=== PATIENT | female | born 1940 | race Caucasian/White ===

== ENCOUNTER 2020-07-03 09:39 | Emergency (ER) | payer MEDICARE, SELFPAY ==
--- NOTE | ~2020-07-03 | XR_ITS ---
EXAMINATION: [id number] DATE: 07/03/2020 10:17 INDICATION: Lateral right chest pain after bending over. TECHNIQUE: A frontal inspiratory view of the chest and 3 views of the right ribs were obtained. COMPARISON: Chest radiograph dated FINDINGS: No rib fractures identified. No pneumothorax. No focal infiltrates, pleural effusion or pulmonary joselito ma. Cardiomediastinal silhouette is normal. Mild thoracic and moderate lumbar spondylosis with bridg ing osteophytes at multiple levels consistent with diffuse idiopathic skeletal hyperostosis (DISH). IMPRESSION: 1. No rib fracture or acute cardiopulmonary disease. Reviewed, dictated and finalized at location A.
[2020-07-03 09:55] VITALS: BP 165/50; PULSE 97; RESP 18; TEMP 36.8; O2SAT 98
[2020-07-03 10:12] VITALS: BP 165/50; PULSE 97; RESP 18; TEMP 36.8; O2SAT 98
--- NOTE | 2020-07-03 10:31 | ED.GENADULT ---
HPI - General Adult General Chief complaint: Wound/Laceration Stated complaint: intense pain on right side Time Seen by Provider: 07/03/20 10:14 Source: patient and RN notes reviewed Mode of arrival: ambulatory Limitations: no limitations History of Present Illness HPI narrative: Patient presents today complaining of a 1 week history of of right lateral rib pain. 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 Dog is approximately 10 pounds. Pain increases with movement, coughing, sneezing. Denies pain at rest. She has been taking Tylenol as needed for pain, which does provide some relief. MD complaint: Right rib pain Related Data Home Medications Medication Instructions Recorded Confirmed atorvastatin 40 mg PO DAILY 07/03/20 07/03/20 lisinopril-hydrochlorothiazide 2 tablet PO DAILY 07/03/20 07/03/20 meloxicam 7.5 mg PO DAILY PRN 07/03/20 07/03/20 prednisone See Rx Instructions .ROUTE .COMPLEX 07/03/20 07/03/20 Allergies Allergy/AdvReac Type Severity Reaction Status Date / Time No Known Allergies Allergy Verified 07/03/20 09:53 Review of Systems Review of Systems: Narrative: CONSTITUTIONAL: Denies body aches, fever, chills, or sweats. EYES: Denies visual changes, redness, or discharge. ENT: Denies rhinorrhea, congestion, sore throat, or otalgia. CARDIOVASCULAR: Denies chest pain, palpitations, or edema. RESPIRATORY: Denies cough or dyspnea. GASTROINTESTINAL: Denies abdominal pain, nausea, vomiting, or diarrhea. GENITOURINARY: Denies dysuria or hematuria. SKIN: Denies rash, itching, or wounds. MUSCULOSKELETAL: Denies back pain, joint pain, or myalgia.+ Right rib pain NEUROLOGIC: Denies headache, numbness, tingling, or weakness. PSYCH: Denies depression or anxiety. [facility] Past Medical History Medical History (Updated 07/03/20 @ 10:35 by Yissel Patiño, PICKER MACHINE OPERATOR, ) Hypercholesterolemia Hypertension Social History Social History Smoking status: Never smoker Comments At time of signature, I have reviewed and agree with nursing past medical, surgical, social and family history unless otherwise noted. Please see nursing chart for further information. There is no relevant family history pertinent to the presenting complaint Exam Narrative: Exam Narrative: GENERAL: Well-appearing, well-nourished, and in no acute distress. HEAD: Normocephalic, atraumatic. EYES: EOMI. No redness or drainage. Conjunctivae normal. ENT: Mucous membranes pink and moist. NECK: Normal AROM. CHEST: No respiratory distress. Clear to auscultation. Localized point tenderness to the right anterior lateral lower ribs without crepitus, edema, ecchymosis, or deformity. HEART: Regular rate and rhythm. No murmur appreciated. Normal peripheral pulses. ABDOMEN: Soft, nontender, nondistended, normal active bowel sounds. MUSCULOSKELETAL: No bony tenderness. EXTREMITIES: Normal range of motion. No edema. SKIN: Warm, dry, no rash. Capillary refill normal. Normal skin turgor. NEURO: No focal deficits. Alert and oriented x3. Gait steady. PSYCH: Normal affect. No signs of depression or anxiety. Course Vital Signs Vital signs: Vital Signs Temperature 98.2 F 07/03/20 09:55 Pulse Rate 97 07/03/20 09:55 Respiratory Rate 18 07/03/20 09:55 Blood Pressure 165/50 H 07/03/20 09:55 Pulse Oximetry 98 07/03/20 09:55 Temperature 98.2 F 07/03/20 10:12 Pulse Rate 97 07/03/20 10:12 Respiratory Rate 18 07/03/20 10:12 Blood Pressure 165/50 H 07/03/20 10:12 Pulse Oximetry 98 07/03/20 10:12 Reviewed. Pt has been instructed to follow up with her PCP regarding her elevated blood pressure today. Medical Decision Making Differential Diagnosis Differential Diagnosis: Rib fracture, rib contusion, chest wall strain Vital Signs Vital Signs: Vital Signs Temperature 98.2 F 07/03/20 09:55 Pulse Rate 97 07/03/20 09:55 Respiratory Rate 18 07/03/20 09:55 Bloo
== END 2020-07-03 10:35 | disposition home or self-care (01) ==
PROVIDERS: Emergency Provider Nurse Practitioner; PCP Internal Medicine
DX: S29.011A Strain of muscle and tendon of front wall of thorax, initial encounter (principal); X50.9XXA Other and unspecified overexertion or strenuous movements or postures, initial encounter; E78.00 Pure hypercholesterolemia, unspecified; I10 Essential (primary) hypertension
CPT/HCPCS: 71101; 99213; G0463

== ENCOUNTER 2024-07-17 11:27 | Emergency (ER) | payer MEDICARE, OTHER, SELFPAY ==
--- NOTE | ~2024-07-17 | XR_ITS ---
XR elbow LT min 3V Ordering provider: Zeferino Olguin APRN History: . pain x1 week no injury . Comparison: None. FINDINGS: BONES: No acute fracture or dislocation. JOINT SPACES: Osteoarthritic changes. SOFT TISSUES: Normal. No definite joint effusion. IMPRESSION: No acute osseous abnormality left elbow. Reviewed, dictated and finalized at location A.
[2024-07-17 11:36] VITALS: BP 113/54; PULSE 83; RESP 20; TEMP 36.7; O2SAT 100
--- NOTE | 2024-07-17 13:15 | ED_ITS ---
HPI - Extremity Injury (Upper) General Chief Complaint: Extremity Injury, Upper Stated Complaint: Left Elbow Pain Source: patient and RN notes reviewed Mode of arrival: ambulatory Limitations: no limitations History of Present Illness HPI narrative: 84-year-old female presents express care with her spouse complaining of left elbow pain. Patient denies any injury to her left elbow or any repetitive movements. She said she noticed the pain about 1 week ago. Patient reports the pain is on the medial side of her left elbow. She denies any obvious swelling, injury, deformity, numbness or tingling. She has a history of arthritis. Patient is able to move her left elbow and denies any pain while resting. She says her pain is worse when she hyperextends her left elbow. Related Data Home Medications ?Medication ?Instructions ?Recorded ?Confirmed ?Last Taken ?Type atorvastatin 40 mg tablet 40 mg PO DAILY 07/03/20 07/03/20 Unknown History lisinopril 20 2 tablet PO DAILY 07/03/20 07/03/20 Unknown History mg-hydrochlorothiazide 12.5 mg tablet meloxicam 7.5 mg tablet 7.5 mg PO DAILY PRN Pain 07/03/20 07/03/20 Unknown Histo ry prednisone 10 mg tablet See Rx Instructions .Route .COMPLEX 07/03/20 07/03/20 Unknown History Allergies Allergy/AdvReac Type Severity Reaction Status Date / Time No Known Allergies Allergy Verified 07/17/24 12:04 Review of Systems Review of Systems: CONSTITUTIONAL: Denies fever, chills, or sweats. EYES: Denies visual changes, redness, or discharge. ENT: Denies rhinorrhea, congestion, sore throat, or otalgia. CARDIOVASCULAR: Denies chest pain, palpitations, or edema. RESPIRATORY: Denies cough or dyspnea. GASTROINTESTINAL: Denies abdominal pain, nausea, vomiting, or diarrhea. GENITOURINARY: Denies dysuria or hematuria. SKIN: Denies rash or itching. MUSCULOSKELETAL: Denies back pain, or myalgia. Positive for left elbow pain. NEUROLOGIC: Denies headache, numbness, tingling, or weakness. PSYCHIATRIC: Denies anxiety or depression. All other systems reviewed are negative, except as documented in HPI. [facility] Past Medical History Medical History (Updated 07/17/24 @ 12:27 by Zeferino Olguin APRN) Hypertension Hypercholesterolemia Social History Social History Smoking status: Never smoker Comments At the time of my signature, I reviewed and agree with the nursing past medical, surgical, social, and family history. There is no relevant family history pertinent to the patient complaint. Exam Narrative: GENERAL: This is a well-nourished, well-developed adult, in no apparent distress. They are non ill-appearing, nontoxic appearing. HEAD: normocephalic, atraumatic. EYES: Sclera clear/white. Vision is grossly intact. EARS: External ears normal, Hearing grossly intact. NOSE: External nose normal THROAT: Mucous membranes moist, NECK: Neck supple, CARDIOVASCULAR: Regular rate and rhythm RESPIRATORY: Normal respiratory rate depth. Respiratory distress SKIN: warm, Dry, intact with no suspicious lesions or rash, good texture and turgor. NEURO: awake, alert, and oriented to person, place and time. There were no obvious focal neurologic abnormalities. EXTREMITIES: Left elbow: There is bony tenderness to palpation to the medial side of the left elbow. There is no obvious swelling, deformity, injury, bruising. Neurovascular status is intact, capillary refill less than 2 seconds, a radial pulse is 2 +and palpable. There is no pain with pronation or supination. Her pain is elicited through hyper extension of her left elbow. Course Course Level of Care: Express Care Visit Vital Signs Vital signs: Vital Signs Temperature 98.0 F 07/17/24 11:36 Pulse Rate 83 07/17/24 11:36 Respiratory Rate 20 07/17/24 11:36 Blood Pressure 113/54 L 07/17/24 11:36 Pulse Oximetry 100 07/17/24 11:36 Oxygen Delivery Room Air 07/17/24 11:36 Temperature 98.0 F 07/17/24 11:36 Pulse Rate 83 07/17/24 11:36 Respiratory Rate 20 07/17/24 11:36 Blood Pressure 113/54 L 07/17/24 11:36 Pulse Oximetry 100 07/17/24 11:36 Oxygen Delivery Room Air 07/17/24 11:36 Reviewed MDM - Extremity Injury (Upper) MDM Narrative Medical decision making narrative: Patient has prominent pain to palpation to the medial side of her left elbow which could be consistent with a tendinitis. X-ray was negative for any acute fracture, did show some arthritis in that joint space. MON therapy discussed. Discussed physical exam findings. Advised supportive measures and signs/symptoms to go to the ER. Pt is appropriate for outpt treatment and f/u. Differential Diagnosis Differential diagnosis: Likely other (Tendinitis, elbow fracture, elbow dislocation) Imaging Data Attestation: I personally reviewed and interpreted this imaging study as follows: Radiologist's impression: History: . pain x1 week no injury . Comparison: None. FINDINGS: BONES: No acute fracture or dislocation. JOINT SPACES: Osteoarthritic changes. SOFT TISSUES: Normal. No definite joint effusion. IMPRESSION: No acute osseous abnormality left elbow. Critical Care Time Critical Care Time Critical Care Time: No Discharge Plan Discharge Clinical Impression: Elbow pain, left Patient Disposition: Home Condition: Stable Instructions: Tennis Elbow (ED) Additional Instructions: Rest and elevate the elbow; Apply ice 15-20 minute intervals several times a day Keep it wrapped with KISHORE wrap for compression sleeve Tylenol 1000mg every 8 hours as needed Follow up with your primary care provider or orthopedist in 1-2 weeks Patient Language: Sri Lankan Prescriptions: No Action atorvastatin 40 mg tablet 40 mg PO DAILY lisinopril-hydrochlorothiazide 20-12.5 mg tablet 2 tablet PO DAILY meloxicam 7.5 mg tablet 7.5 mg PO DAILY PRN (Reason: Pain) prednisone 10 mg tablet See Rx Instructions .ROUTE .COMPLEX Rx Instructions: 10 mg orally, tapering dose Follow-up/Referrals: Griffin Brush MD [Physician] - [facility],Yrn Vences MD [Primary Care Provider] - Time of Disposition: 12:27
--- OUTSIDE RECORDS SUMMARY | 2024-07-17 13:23 | XMS_ITS | Referral Summary ---
Author Organization [facility] Address [address] [place] [address] Care Team Providers Care Surg Tech Name Role Phone Yrn Tuttle MD Primary Care Provider [phone] Jo Harmon PT Unavailable Unavailable Allergies Active Allergy Reactions Criticality Noted Date Comments Sulfa (Sulfonamide Antibiotics) Sulfanilamide Hives Reaction: Hives, Medications atorvastatin (LIPITOR) 40 mg tablet 05/17/2017 Active lisinopril-hydr oCHLOROthiazide (PRINZIDE,ZESTO RETIC) 20-12.5 mg per tabletIndicatio ns:hypertension Take 1 tablet by mouth 2 (two) times a day 04/06/2017 Active aspirin 81 mg tablet Take 1 tablet (81 mg total) by mouth daily Active metoprolol tartrate (LOPRESSOR) 50 mg immediate release tablet Take 1 tablet (50 mg total) by mouth 2 (two) times a day 09/17/2020 Active diphenhydrAMINE -acetaminophen (TYLENOL PM) 25-500 mg tablet Take 1 tablet by mouth nightly as needed for sleep Active polyethylene glycol (MIRALAX) 17 gram/dose powder Take 17 g by mouth 2 (two) times a day as needed 09/17/2020 Active senna (SENOKOT) 8.6 mg tablet Take 8.6 mg by mouth daily 09/17/2020 Active furosemide (LASIX) 20 mg tablet Take 20 mg by mouth daily as needed 03/11/2021 Active traMADoL (ULTRAM) 50 mg tablet 03/11/2021 Active potassium chloride ER 10 mEq CR tablet Take 1 tablet/capsu le (10 mEq total) by mouth daily 03/30/2022 Active Active Problems Problem Noted Date Diagnosed Date Chronic anemia 09/11/2021 Bilateral lower extremity edema 03/11/2021 S/P total knee arthroplasty, left 08/12/2020 Primary osteoarthritis of both knees 07/22/2020 Primary osteoarthritis of left knee 06/07/2020 Generalized osteoarthritis 12/12/2019 Moderate aortic stenosis 12/12/2019 Lipoma of skin and subcutaneous tissue 0 Benign skin lesion of neck 10/31/2019 Memory loss 11/17/2017 Other hyperlipidemia 08/26/2013 Overview (07/22/2020): HYPERLIPIDEMIA NEC/NOS GERD without esophagitis 08/26/2013 Overview (07/22/2020): ESOPHAGEAL REFLUX Benign hypertension 08/26/2013 Overview (07/16/2016): BENIGN HYPERTENSION Essential hypertension, benign 08/26/2013 Overview (07/22/2020): HYPERTENSION NOS Immunizations Immunization Administration Dates Next Due Pneumococcal Polysaccharide PPV23 01/21/2009 Td, adsorbed 01/21/2009 Social History Tobacco Use Types Packs/Day Years Used Date Smoking Tobacco: Never Smokeless Tobacco: Never Alcohol Use Standard Drinks/Week Comments No 0 (1 standard drink = 0.6 oz pur e alcohol) Comments Unknown Sex and Gender Information Value Date Recorded Sex Assigned at Not on file Legal Sex Female 11:49 PM PAPER STRIPPER Gender Identity Not on file Sexual Orientation Not on file Last Filed Vital Signs Vital Sign Reading Time Taken Comments Blood Pressure 109/68 05/14/2023 10:43 AM PAPER STRIPPER Pulse 83 05/14/2023 10:43 AM PAPER STRIPPER Temperature 36.6 C (97.8 F) 07/22/2020 9:14 AM CDT Respiratory Rate 16 10/04/2020 9:04 AM CDT Oxygen Saturation - - Inhaled Oxygen Concentration - - Weight 61.3 kg (135 lb 3.2 oz) 05/14/2023 10:43 AM PAPER STRIPPER Height 149.9 cm (4' 11 ) 05/14/2023 10:43 AM PAPER STRIPPER Body Mass Index 27.31 05/14/2023 10:43 AM PAPER STRIPPER Plan of Treatment Not on file Insurance MEDICARE [facility] MEDICARE [facility] [place] [address] Care Teams Surg Tech Relationship Specialty Start Date End Date Yrn Tuttle MD [address] [place] [address] PCP - General 01/21/09 Jo Harmon, PT Physical Therapist Physical Therapy 05/20/22
--- OUTSIDE RECORDS SUMMARY | 2024-07-17 13:23 | XMS_ITS | Clinical Summary ---
Author Organization [facility] Address [address] [place] [address] Care Team Providers Care Livestock Broker Name Role Phone Yrn Tuttle MD Primary Care Provider [phone] Jo Harmon PT Unavailable Unavailable Allergies Active [...] Pneumococcal Polysaccharide PPV23 01/21/2009 Td, adsorbed 01/21/2009 Surgical History Surgery Date Site/Laterality Comments SECTION section OTHER SURGICAL HISTORY Arthrocentesis of the right shoulder subacromial space Medical History Medical History Date Comments Hx Other Medical LE edema Hx Other Medical back pain Hx Other Medical Rt ankle pain Hypertension Hypertension Depression Depression Gastroesophageal reflux disease GERD Cerebrovascular accident (CVA) (HCC) Stroke Hx Other Medical Hepatitis Hx Other Medical 1992 Right leg and a nkle surgery TIA (transient ischemic attack) Family History Medical History Relation Name Comments Throat cancer Brother Cancer -throat ; Colon cancer Father Cancer -colon; Cause of : Cancer -colon Heart attack Mother Myocardial infa rction; Cause of : Myocardial infarction Cancer Other 1 Family history of Cancer; Hypertension Other 2 Family history of Hypertension; Relation Name Status Comments Brother Father Mother Other 1 Other 2 Social History Tobacco Use Types Packs/Day Years Used Date Smoking Tobacco: Never Smokeless Tobacco: Never Alcohol Use Standard Drinks/Week Comments No 0 (1 standard drink = 0.6 oz pur e alcohol) Comments Unknown Sex and Gender Information Value Date Recorded Sex Assigned at Not on file Legal Sex Female 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 Gender Identity Not on file Sexual Orientation Not on file Obstetrics History Last Filed Vital Signs Vital Sign Reading Time Taken Comments Blood Pressure 109/68 05/14/2023 10:43 AM SENIOR RELATIONSHIP MANAGER Pulse 83 05/14/2023 10:43 AM SENIOR RELATIONSHIP MANAGER Temperature 36.6 C (97.8 F) 07/22/2020 9:14 AM CDT Respiratory Rate 16 10/04/2020 9:04 AM CDT Oxygen Saturation - - Inhaled Oxygen Concentration - - Weight 61.3 kg (135 lb 3.2 oz) 05/14/2023 10:43 AM SENIOR RELATIONSHIP MANAGER Height 149.9 cm (4' 11 ) 05/14/2023 10:43 AM SENIOR RELATIONSHIP MANAGER Body Mass Index 27.31 05/14/2023 10:43 AM SENIOR RELATIONSHIP MANAGER Plan of Treatment Health Maintenance Due Date Last Done Comments Depression Screening 1939 Fall Risk Assessment 1940 Osteoporosis Screening-Bone Density Scan 1940 Hepatitis B Screening 06/23/1957 Zoster Vaccine (1 of 2) 06/23/1989 Well Visit 65+ 06/23/2004 DTaP/Tdap/Td Vaccine (1 - Tdap) 01/22/2009 9 Influenza Vaccine (#1) 2023 2, 03/11/2021, 01/09/2020, Additional history exists Pneumococcal vaccine 65+ Completed 020, 04/13/2009, 01/21/2009 [place] [address] [place] [address] [place] [address] MEDICARE [facility] Care Teams Livestock Broker Relationship Specialty Start Date End Date Yrn Tuttle MD [address] [place] [address] PCP - General 01/21/09 Jo Harmon, PT Physical Therapist Physical Therapy 05/20/22
--- OUTSIDE RECORDS SUMMARY | 2024-07-17 13:23 | XMS_ITS | Clinical Summary ---
Author Organization [facility] Address [address] [place] [address] Care Team Providers Care Circular Knife Cutter Machine Name Role Phone Unknown, Provider Primary Care Provider Unavaila ble Source Comments [facility],non-owned Affiliates and Associated Physician Practices is amultiple site organization consisting of ambulatory clinics and hospital sitesin [place], [place], [place] and [place]. This disclosure is being madepursuant to the Care Everywhere program and may not contain all information available regarding this patient. Last updated 17.[facility] [employer] Allergies Active Allergy Reactions Criticality Noted Date Comments Sulfa Antibiotics Urticaria Medium 01/20/2024 Sulfamethoxazole W-Trimethoprim Urticaria Medium 01/10 60 years ago Medications * Be aware that medications may not be up to date on this document. Alwaysverify current medications with the patient. Medication Sig Dispensed Refills Start Date End Date Status aspirin EC (Ecotrin) 81 MG tablet Take 1 (one) tablet by mouth once daily Active atorvastatin (Lipitor) 40 MG tablet Take 1 (one) tablet by mouth at bedtime 11/29/2023 Active diphenhydrAMINE-APAP, sleep, (Tylenol PM Es) 25-500 MG tablet Take 1 (one) tablet by mouth nightly as needed Active furosemide (Lasix) 20 MG tablet Take 1 (one) tablet by mouth once daily 11/29/2023 Active lisinopril-hydroCHLOR Othiazide (Prinzide; Zestoretic) 20-12.5 MG tablet Take 1 (one) tablet by mouth once daily 12/20/2023 Active metoprolol tartrate IR (Lopressor) 50 MG tablet Take 0.5 (one-half) tablet by mouth 2 times daily 11/03/2023 Active potassium chloride ER 10 MEQ tablet Take 1 (one) tablet by mouth once daily 10/26/2023 Active traMADol (Ultram) 50 MG tablet TAKE 1 TABLET BY MOUTH TWICE DAILY NEEDED FOR MODERATE TO SEVERE PAIN 02/09/2023 Active Active Problems Problem Noted Date Diagnosed Date Severe aortic stenosis 02/02/2024 Encounter for examination fo r normal comparison and control in clinical research program 02/02/2024 Social History Tobacco Use Types Packs/Day Years Used Date Smoking Tobacco: Never Smokeless Tobacco: Never Tobacco Cessation:Counseling Given: Not Answered Alcohol Use Standard Drinks/Week Comments Not Currently 0 (1 standard drink = 0.6 oz pur e alcohol) AUDIT-C Answer Date Recorded Q1: How often do you have a drink containing alcohol? Never 02/15/2024 Q2: How many drinks containi ng alcohol do you have on a typical day when you are drinking? Patient does not drink Q3: How often do you have si x or more drinks on one occasion? Never 02/15/2024 Overall Financial Resource Strain (CARDIA) Answe r Date Recorded How hard is it for you to pa y for the very basics like food, housing, medical care, and heating? Not hard at all 02/15/2024 [facility] [place] of Occupat ional Health - Occupational Stress Questionnaire Answer Date Recorded Do you feel stress - tense, restless, nervous, or anxious, or unable to sleep at night because your mind is troubled all the time - these days? Not at all 02/15/2024 Hunger Vital Sign Answer Date Recorded Within the past 12 months, y ou worried that your food would run out before you got the money to buy more. Never true 02/15/20 24 Within the past 12 months, t he food you bought just didn't last and you didn't have money to get more. Never true 02/15/2024 PRAPARE - Transportation Answer Date Re corded In the past 12 months, has l ack of transportation kept you from medical appointments or from getting medications? No 08/2023 In the past 12 months, has l ack of transportation kept you from meetings, work, or from getting things needed for daily living? No 02/15/2024 Housing Stability Vital Sign Answer Wolf e Recorded In the last 12 months, was t here a time when you were not able to pay the mortgage or rent on time? No 02/15/2024 In the past 12 months, how m any times have you moved where you were living? 1 02/15/2024 At any time in the past 12 m [facility], were you homeless or living in a snf (including now)? No 02/15/2024 Sex and Gender Information Value Date Recorded Sex Assigned at Not on file Gender Identity Not on file Sexual Orientation Not on file Last Filed Vital Signs Vital Sign Reading Time Taken Comments Blood Pressure 165/66 02/16/2024 7:48 AM SHOWROOM CONSULTANT Pulse 89 02/16/2024 7:48 AM SHOWROOM CONSULTANT Temperature 36.3 C (97.4 F) 02/16/2024 7:48 AM SHOWROOM CONSULTANT Respiratory Rate 20 02/16/2024 7:48 AM SHOWROOM CONSULTANT Oxygen Saturation 93% 02/16/2024 7:48 AM SHOWROOM CONSULTANT Inhaled Oxygen Concentration - - Weight 63.5 kg (140 lb) 02/16/2024 7:48 AM SHOWROOM CONSULTANT Height 175.3 cm (5' 9 ) 02/16/2024 7:48 AM SHOWROOM CONSULTANT Body Mass Index 20.67 02/16/2024 7:48 AM SHOWROOM CONSULTANT Plan of Treatment Health Maintenance Due Date Last Done Comments BONE DENSITY TESTING 1940 MEDICARE AWV 12 MONTHS 1940 DTAP/TDAP/TD VACCINES (1 - Tdap) 06/23/1958 PNEUMOCOCCAL VACCINE 50+ (1 of 1 - PCV) 06/23/1989 ZOSTER VACCINE (1 of 2) 06/23/1989 Respiratory Syncytial Virus (RSV) Vaccine Pt: or over 60 yrs (1 - 1-dose 75+ series) 06/23/2014 COVID-19 VACCINE (2 - season) 2023 07/17/2020 DEPRESSION SCREENING 04/12/2024 INFLUENZA VACCINE Completed 02/10/2024, , 03/11/2021, Additional history exists HEPATITIS B VACCINE Aged Out No longe r eligible based on patient's age to complete this topic HIB VACCINE Aged Out No longer eligi ble based on patient's age to complete this topic HPV VACCINE Aged Out No longer eligi ble based on patient's age to complete this topic MENINGOCOCCAL (Group B) VACCINE SHARED DECISION-MAKING Aged Out No longer eligible based on patient's age to complete this topic MENINGOCOCCAL GROUPS A/C/Y/W VACCINE Aged Out No longer eligible based on patient's age to complete this topic Medical Devices Implanted Type Area Junior Web Designer Device Identifier Shelf Expiration Date Model / Serial / Lot Vlv Aor Evolut Fx+ 26mm 20-23mm - [id number] Implanted:Qty: 1 on 02/15/2024 by Samy Galaviz MD at [facility] [employer] [id number] 10/14/2025 EVFXPLU S-26 / [id number] Explanted Type Area Junior Web Designer Device Identifier Shelf Expiration Date Model / Serial / Lot Cath Pace Eltrd Biplr Dist Tip Balln Flw - [id number] Explanted:Qty: 1 on 02/15/2024 by Samy Galaviz MD at [facility] [employer] [id number] 08/09/2025 [id number] / [id number] / [id number] Advance Directives * Full Code (Latest Code Status on File) Date Activated Date Inactivated Comments 02/15/2024 10:00 AM 02/16/2024 2:23 PM Care Teams Circular Knife Cutter Machine Relationship Specialty Start Date End Date Unknown, Provider PCP - General 01/20/24
--- OUTSIDE RECORDS SUMMARY | 2024-07-17 13:24 | XMS_ITS | Encounter Summary ---
Author Organization [facility] Address [address] [place] [address] Phone Care Team Providers Care Physiognomist Name Role Phone Yrn Tuttle MD Primary Care Provider [phone] Samy Galaviz MD Unavailable [phone] Sarah Galaviz APRN, ASSEMBLY INSPECTOR HELPER Unavailable +- [phone] Reason for Visit * Reason Comments Medication Refill Encounter Details Date Type Department Care Team (Late st Contact Info) Description 08/31/2020 Refill [facility] Medical Group - Internal Medicine [facility] [address] [place] [address] Yrn Tuttle MD [address] [place] [address] Medication Refill Social History Tobacco Use Types Packs/Day Years Used Date Smoking Tobacco: Never Smokeless Tobacco: Never Alcohol Use Standard Drinks/Week Comments No 0 (1 standard drink = 0.6 oz pur e alcohol) PHQ-2 Answer Date Recorded Total Score - Questions 1-9 0 05/14 Sexually Active Control Partners Comments Not Currently Male Comments No Sex and Gender Information Value Date Recorded Sex Assigned at Not on file Legal Sex Female 11:22 PM CDT Gender Identity Not on file Sexual Orientation Not on file COVID-19 Exposure Response Date Recorded In the last month, have you been in contact with someone who was confirmed or suspected to have Coronavirus / COVID-19? No / Unsure 08/12/2020 5:24 AM CDT documented as of this encounter Plan of Treatment Upcoming Encounters Date Type Department Care Team (Late st Contact Info) Description 08/01/2024 2:00 PM CDT Office Visit [facility] Medical Group - Cardiology [facility] [address] [place] [address] Samy Galaviz MD [address]2 [facility] [address] [place] [address] 08/14/2024 11:15 AM CDT Office Visit [facility] Medical Group - Internal Medicine [facility] [address] [place] [address] Yrn Tuttle MD [address] [place] [address] documented as of this encounter Visit Diagnoses Not on filedocumented in this encounter Additional Health Concerns Assessment Noted Time PHQ-9 Depression Total Score: 0 06/07/19 21 11:00 AM CERTIFIED NURSING ASSISTANT documented as of this encounter Care Teams Physiognomist Relationship Specialty Start Date End Date Yrn Tuttle MD [address] [place] [address] PCP - General Internal Medicine 11/27/15 Samy Galaviz MD #2 [facility] [address] [place] [address] Consulting Physician Interventional Cardiology 12/02/23 Sarah Galaviz APRN, ASSEMBLY INSPECTOR HELPER #[address] [facility] [address] [place] [address] Nurse Practitioner Cardiology 03/08/24 documented as of this encounter
--- OUTSIDE RECORDS SUMMARY | 2024-07-17 13:24 | XMS_ITS | Encounter Summary ---
Author Organization [facility] Address [address] [place] [address] Phone Care Team Providers Care Uniform Designer Name Role Phone Yrn Tuttle MD Primary Care Provider [phone] Samy Galaviz MD Unavailable [phone] Sarah Galaviz APRN, ACTION FINISHER Unavailable +- [phone] Reason for Visit * Reason Comments Medication Refill Encounter Details Date Type Department Care Team (Late st Contact Info) Description 11/01/2023 Refill [facility] Medical Group - Internal Medicine [place] [address] [place] [address] Yrn Tuttle MD [address] [facility] [place] [place] [address] Medication Refill Social History Tobacco Use Types Packs/Day Years Used Date Smoking Tobacco: Never Passive Smoke Exposure: Never Smokeless Tobacco: Never Alcohol Use Standard Drinks/Week Comments No 0 (1 standard drink = 0.6 oz pur e alcohol) [facility] Utilities Answer Date Recorded In the past 12 months has e electric, gas, oil, or water company threatened to shut off services in your home? Patient declined 04/15/2023 Social Connection and Isolation Panel [NHANES] A nswer Date Recorded In a typical week, how many times do you talk on the phone with family, friends, or neighbors? Patient declined 04/15/2023 How often do you get togethe r with friends or relatives? Patient declined 04/15/2023 How often do you attend quaker or nondenominational serv ices? Patient declined 04/15/2023 Do you belong to any clubs o r organizations such as quaker groups, unions, fraternal or athletic groups, or school groups? Patient declined 04/15/2023 How often do you attend meet ings of the clubs or organizations you belong to? Patient declined 04/15/2023 Are you , , di vorced, , never , or living with a partner? Patient declined 04/15/2023 AUDIT-C Answer Date Recorded Q1: How often do you have a drink containing alc ohol? Patient declined 04/15/2023 Q2: How many drinks containi ng alcohol do you have on a typical day when you are drinking? Patient declined 04/15/2023 Q3: How often do you have si x or more drinks on one occasion? Patient declined 04/15/2023 Overall Financial Resource Strain (CARDIA) Answe r Date Recorded How hard is it for you to pa y for the very basics like food, housing, medical care, and heating? Patient declined 04/15/2023 PHQ-2 Answer Date Recorded Total Score - Questions 1-9 0 /0 05/2021 [facility] of Occupat ional Health - Occupational Stress Questionnaire Answer Date Recorded Do you feel stress - tense, restless, nervous, or anxious, or unable to sleep at night because your mind is troubled all the time - these days? Patient declined 04/15/2023 Exercise Vital Sign Answer Date Recorde d On average, how many days pe r week do you engage in moderate to strenuous exercise (like a brisk walk)? Patient declined On average, how many minutes do you engage in exercise at this level? Patient declined 04/15/2023 Hunger Vital Sign Answer Date Recorded Within the past 12 months, y ou worried that your food would run out before you got the money to buy more. Patient declined Within the past 12 months, t he food you bought just didn't last and you didn't have money to get more. Patient declined 07/2023 PRAPARE - Transportation Answer Date Re corded In the past 12 months, has l ack of transportation kept you from medical appointments or from getting medications? Patient declined 04/15/2023 In the past 12 months, has l ack of transportation kept you from meetings, work, or from getting things needed for daily living? Patient declined 04/15/2023 Housing Stability Vital Sign Answer Wolf e Recorded In the last 12 months, was t here a time when you were not able to pay the mortgage or rent on time? Patient declined 04/15/19 24 In the last 12 months, how many places have you lived? 1 04/15/2023 In the last 12 months, was t here a time when you did not have a steady place to sleep or slept in a fci (including now)? Patient declined 04/15/2023 Education Answer Date Recorded What is the highest level of school you have completed or the highest degree you have received? 12th grade 10/18/2022 Sexually Active Control Partners Comments Not Currently Male Comments No Sex and Gender Information Value Date Recorded Sex Assigned at Not on file Legal Sex Female 11:22 PM CDT Gender Identity Not on file Sexual Orientation Not on file documented as of this encounter Plan of Treatment Upcoming Encounters Date Type Department Care Team (Late st Contact Info) Description 08/01/2024 2:00 PM CDT Office Visit [facility] Medical Group - Cardiology [facility] [address] [place] [address] Samy Galaviz MD #[address] [address] 08/14/2024 11:15 AM CDT Office Visit [facility] Medical Group - Internal Medicine - [place] [address] [place] [id number] Yrn Tuttle MD [address] [place] [address] documented as of this encounter Visit Diagnoses Not on filedocumented in this encounter Additional Health Concerns Assessment Noted Time PHQ-9 Depression Total Score: 0 04/15/19 9:15 AM CARE MANAGEMENT COORDINATOR documented as of this encounter Care Teams Uniform Designer Relationship Specialty Start Date End Date Yrn Tuttle MD [address] [place] [address] PCP - General Internal Medicine 11/27/15 Samy Galaviz MD #2 [facility] [address] [place] [address] Consulting Physician Interventional Cardiology 12/02/23 Sarah Galaviz APRN, ACTION FINISHER #2 [facility], [address] [place] [address] Nurse Practitioner Cardiology 03/08/24 documented as of this encounter
--- OUTSIDE RECORDS SUMMARY | 2024-07-17 13:24 | XMS_ITS | Encounter Summary ---
Author Organization [facility] Address [address] [place] [address] Phone Care Team Providers Care Car Packer Name Role Phone Yrn Tuttle MD Primary Care Provider [phone] Samy Galaviz MD Unavailable [phone] Sarah Galaviz APRN, PEDIATRICIAN Unavailable +- [phone] Reason for Visit * Reason Comments Medication Refill Encounter Details Date Type Department Care Team (Late st Contact Info) Description 05/31/2024 Refill [facility] Medical Group - Internal Medicine [place] [address] [place] [address] Yrn Tuttle MD [address] [facility] [place] [address] Medication Refill Social History Tobacco Use Types Packs/Day Years Used Date Smoking Tobacco: Never Passive Smoke Exposure: Never Smokeless Tobacco: Never Alcohol Use Standard Drinks/Week Comments No 0 (1 standard drink = 0.6 oz pur e alcohol) [facility] Utilities Answer Date Recorded In the past [...] declined 04/15/2023 How often do you attend mosque or episcopalian serv ices? Patient declined 04/15/2023 Do you belong to any clubs o r organizations such as mosque groups, unions, fraternal or athletic groups, or [...] Recorded Total Score - Questions 1-9 0 07/2024 [facility] of Occupat ional Health - Occupational Stress [...] place to sleep or slept in a custodial (including now)? Patient declined 04/15/2023 Education Answer [...] Description 08/01/2024 2:00 PM CDT Office Visit [facility] Medical Group - Cardiology [facility] [address] [place] [address] Samy Galaviz MD #[address] [address] 08/14/2024 11:15 AM CDT Office Visit [facility] Medical Group - Internal Medicine - [place] [address] [place] [address] Yrn Tuttle MD [address] [place] [address] documented as of this encounter Visit Diagnoses Not on filedocumented in this encounter Additional Health Concerns Assessment Noted Time PHQ-9 Depression Total Score: 0 02/04/20 25 10:28 AM ELECTRICAL ENGINEERING INTERN documented as of this encounter Care Teams Car Packer Relationship Specialty Start Date End Date Yrn Tuttle MD [address] [facility] [place] [place] [address] PCP - General Internal Medicine 11/27/15 Samy Galaviz MD #2 [facility] [address] [place] [address] Consulting Physician Interventional Cardiology 12/02/23 Sarah Galaviz APRN, PEDIATRICIAN #2 [facility], [address] [place] [address] Nurse Practitioner Cardiology 03/08/24 documented as of this encounter
--- OUTSIDE RECORDS SUMMARY | 2024-07-17 13:24 | XMS_ITS | Continuity of Care Document ---
Author Organization [facility] Address [address] [place] [address] Phone Care Team Providers Care Director Perioperative Name Role Phone Leland Julio MD Unavailable Unavailable Allergies, Adverse Reactions, Alerts Substance Reaction Status Criticality Sulfa (Sulfonamide Antibiotics) Active No Information Procedures Procedure Date Work/medical disability examination [facility] X-ray exam of shoulder, complete 2011 Prolonged serv, w/o contact, 1st hr Advance Directives Directive Yes / No Effective Date File Name No Information Encounters Encounter Description Practice Location Reason(s) For Visit Diagnoses Date Provider Providers Copied on Encounter Work/medical disability examination [facility], [address] [place] [address], [id number], tel:[phone] Nori Ha. [address] [place] [address], [id number], . tel:[phone] Family History Family Member Type Diagnosis Age At Onset No Information Payers Payer name Insurance type Covered republican ID Ruthann davila(s) [employer] [id number] Social History Type Description Quantity Date Captured [...]
--- OUTSIDE RECORDS SUMMARY | 2024-07-17 13:24 | XMS_ITS | Clinical Summary ---
Author Organization [facility] Address [address] [place] [address] Phone Care Team Providers Care Water Taxi Driver Name Role Phone Yrn Tuttle MD Primary Care Provider [phone] Samy Galaviz MD Unavailable [phone] Sarah Galaviz APRN, QUALIFIED CRAFT WORKER ELECTRICIAN Unavailable [phone] Allergies Active Allergy Reactions Criticality Noted Date Comments Sulfanilamide Hives 10/31/2019 Reaction: Hives, Medications aspirin 81 MG Chewable Tablet Take 1 Tablet by mouth daily. 100 Tablet 09/17/2020 Active metoprolol tartrate (LOPRESSOR) 50 MG Tablet Take 0.5 Tablets by mouth 2 times daily. 180 Tablet 1 11/03/2023 Active potassium chloride CR (KLORCON) 10 MEQ Tablet Controlled Release Take 1 Tablet by mouth daily. 90 Tablet 1 05/23/2024 Active lisinopril-hydr oCHLOROthiazide (PRINZIDE, ZESTORETIC) 20-12.5 MG Tablet Take 1 Tablet by mouth daily. 90 Tablet 1 05/23/2024 Active furosemide (LASIX) 20 MG Tablet Take 1 Tablet by mouth daily. 90 Tablet 1 05/23/2024 Active atorvastatin (LIPITOR) 40 MG Tablet Take 1 Tablet by mouth nightly. 90 Tablet 2 05/23/2024 Active Active Problems Problem Noted Date Diagnosed Date Severe aortic stenosis 12/03/2023 Nonrheumatic aortic valve stenosis 12/02/2023 Overview (05/16/2024): TAVR- 02/2024 Nonrheumatic mitral valve regurgitation 12/02/19 24 Stage 3b chronic kidney disease 07/27/2023 Hypokalemia 10/19/2022 Chronic anemia 09/11/2021 Bilateral lower extremity edema 03/11/2021 S/P total knee arthroplasty, left 08/12/2020 GERD without esophagitis 06/07/2020 Essential hypertension, benign 12/12/2019 Other hyperlipidemia 12/12/2019 Generalized osteoarthritis 12/12/2019 Hiatal hernia with GERD without esophagitis 04/2019 Benign skin lesion of neck 10/31/2019 Lipoma of skin and subcutaneous tissue Resolved Problems Problem Noted Date Diagnosed Date Resolved Date Bilateral lower extremity edema 07/27/2023 07/27/2023 Paroxysmal atrial fibrillation 09/17/2020 06/11/2021 Moderate aortic stenosis 08/01/2020 Primary osteoarthritis of left knee 06/07/2020 08/12/2020 Encounters Date Type Department Care Team Description 05/31/2024 Refill [facility] [address] [place] [address] Yrn Tuttle MD Medication Refill 05/23/2024 Refill [facility] [address] [place] [address] Yrn Tuttle MD Medication Refill 05/22/2024 Results Follow-Up [facility] [address] [place] [address] Yrn Tuttle MD 05/22/2024 Telephone [facility] [address] [place] [phone] Yrn Tuttle MD 05/22/2024 Travel 05/18/2024 Results Follow-Up [facility] [address] [facility] [place] [address] Yrn Tuttle MD Chronic anemia (Primary Dx) 05/16/2024 10:00 AM MOTORSPORTS TECHNICIAN Office Visit [facility] Internal Medicine [facility] [address] [place] [address] Yrn Tuttle MD Essential hypertension, benign (Primary Dx); Abnormal blood chemistry test; Other hyperlipidemia; Nonrheumatic aortic valve stenosis Discharge Disposition: Discharged to home or Selfcare 05/16/2024 Travel from Last 3 Months Immunizations Immunization Administration Dates Next Due Covid-19 Vaccine, Vector-nr, Rs-ad26, Pf, 0.5 Ml ([employer]) 07/17/2020 Influenza Vaccine 01/06/2019 Influenza Vaccine, Quadrivalent, PF 12/16/2021,1 05/11/2020,01/09/2020 Influenza, Quadrivalent, Adjuvanted 01/13/2023 Influenza, Trivalent, Adjuvanted, PF 02/10/2024 Pneumococcal Vaccine - 13 Valent 04/13/2009 Pneumococcal Vaccine Adult - 23 Valent 0,01/21/2009 Td, Adsorbed, Preservative F ree, Adult Use, Lf Unspecified 01/21/2009 Family History Medical History Relation Name Comments Cancer Father Colon Cancer Father Cancer Half-Brother throat Hypertension Mother Diabetes Sister Heart Attack Son Relation Name Status Comments Brother Father Half-Brother Mother Sister Alive Son Social History Tobacco Use Types Packs/Day Years Used Date Smoking Tobacco: Never Passive Smoke Exposure: Never Smokeless Tobacco: Never Tobacco Cessation:Counseling Given: No Alcohol Use Standard Drinks/Week Comments No 0 (1 standard drink = 0.6 oz pur e alcohol) [facility] Utilities Answer Date Recorded In the past 12 months has [employer], gas, oil, or water [employer] threatened to shut off services in your home? Patient declined 04/15/2023 Social Connection and Isolation Panel [NHANES] A nswer Date Recorded In a typical week, how many times do you talk on the phone with family, friends, or neighbors? Patient declined 04/15/2023 How often do you get togethe r with friends or relatives? Patient declined 04/15/2023 How often do you attend confucianist or scientologist serv ices? Patient declined 04/15/2023 Do you belong to any clubs o r organizations such as confucianist groups, unions, fraternal or athletic groups, or [...] Total Score - Questions 1-9 0 /0 07/2024 [facility] of Occupat ional [facility] - Occupational Stress Questionnaire Answer Date Recorded [...] place to sleep or slept in a care home (including now)? Patient declined 04/15/2023 Education Answer [...] Sign Reading Time Taken Comments Blood Pressure 108/50 05/16/2024 10:32 AM MOTORSPORTS TECHNICIAN Pulse 98 05/16/2024 10:32 AM MOTORSPORTS TECHNICIAN Temperature 36.4 C (97.5 F) 05/16/2024 10:32 AM MOTORSPORTS TECHNICIAN Respiratory Rate 16 03/07/2024 1:25 PM MOTORSPORTS TECHNICIAN Oxygen Saturation 90% 05/16/2024 10:32 AM MOTORSPORTS TECHNICIAN Inhaled Oxygen Concentration - - Weight 59.9 kg (132 lb) 05/16/2024 10:32 AM MOTORSPORTS TECHNICIAN Height 149.9 cm (4' 11 ) 05/16/2024 10:32 AM MOTORSPORTS TECHNICIAN Body Mass Index 26.66 05/16/2024 10:32 AM MOTORSPORTS TECHNICIAN Plan of Treatment Upcoming Encounters Date Type Department Care Team (Late st Contact Info) Description 08/01/2024 2:00 PM CDT Office Visit [facility] - Cardiology - [place] [address] [place] [address] Samy Galaviz MD [address] [address] 08/14/2024 11:15 AM CDT [facility] - Internal Medicine - [place] [address] [place] [id number] Yrn Tuttle MD [address] [place] [address] Health Maintenance Due Date Last Done Comments DEXA Bone Density 1940 Hepatitis C Virus (HCV) Screening 1940 TdaP Immunization 1940 Zoster Immunization (1 of 2) 06/23/1989 Respiratory Syncytial Virus (RSV) Immunization (Adult) (1 - 1-dose 75+ series) 06/23/2014 SARS-COV-2 Immunization ( season) 2023 03/12/2021, 07/17/2020 Pneumococcal Immunization (50+ years) Completed 01/09/2020, 04/13/2009, 01/21/2009 Pneumococcal Immunization Combined Discontinued 01/09/2020, 04/13/2009, 01/21/2009 Influenza Immunization Completed , 01/13/2023, 12/16/2021, Additional history exists Hepatitis B Immunization Aged Out No longer eligible based on patient's age to complete this topic Meningococcal Immunization (ACWY) Aged Out No longer eligible based on patient's age to complete this topic Rotavirus Immunization Aged Out No lo nger eligible based on patient's age to complete this topic Medical Devices Implanted Type Area Air Intercept Controller Supervisor Device Identifier Shelf Expiration Date Model / Serial / Lot Cement Bone Smartset Gentamicin High Viscosity 40gm - [id number] Implanted:Qty: 1 on 08/12/2020 by Doc Lopez MD at [facility] IMPLANT Left: Knee Depuy [employer] 05/12/2021 [id number] / [id number] / [id number] Device Clsr 5fr Mynxgrip Director Strategy Vasc Bln Cath Lock Syr Integrate Sealant 10ml Lf Disp - [id number] Implanted:Qty: 1 on 12/27/2023 by Samy Galaviz MD at [facility] IMPLANT Access[employer] Inc [id number] / / [id number] Attune Femoral Porocoat Cruciate Retaining Implanted:Qty: 1 on 08/12/2020 by Doc Lopez MD at [facility] Left: Knee DePuy 05/12/2027 [id number] / [id number] / [id number] Attune Tibial Insert Fixed Bearing Cruciate Retaining Implanted:Qty: 1 on 08/12/2020 by Doc Lopez MD at [facility] Left: Knee DePuy 11/09/2020 [id number] / [id number] / [id number] Attune Knee System Tibial Base Fixed Bearing Implanted:Qty: 1 on 08/12/2020 by Doc Lopez MD at [facility] Left: Knee DePuy 06/09/2028 [id number] / [id number] / [id number] Procedures Procedure Name Priority Date/Time Associated Diagnosis Comments VITAMIN B12 Routine 05/22/2024 9:34 AM MOTORSPORTS TECHNICIAN Chronic anemia FERRITIN Routine 05/22/2024 9:34 AM MOTORSPORTS TECHNICIAN Chronic anemia IRON (FE) Routine 05/22/2024 9:34 AM MOTORSPORTS TECHNICIAN Chronic anemia CBC WITH AUTO DIFFERENTIAL Routine 05/18/2024 9:46 AM MOTORSPORTS TECHNICIAN S/P TAVR (transcatheter aortic valve replacement) BASIC METABOLIC PANEL W/ CALCIUM TOTAL Routine 05/18/2024 9:46 AM MOTORSPORTS TECHNICIAN S/P TAVR (transcatheter aortic valve replacement) COMPLETE BLOOD COUNT (CBC) WITH DIFF Routine 05/18/2024 9:46 AM MOTORSPORTS TECHNICIAN S/P TAVR (transcatheter aortic valve replacement) from Last 3 Months Results * (ABNORMAL) VITAMIN B12 (05/22/2024 9:34 AM MOTORSPORTS TECHNICIAN) VITAMIN B12 1,120(H) 213 - 816 pg/mL 05/22/2024 12:20 PM MOTORSPORTS TECHNICIAN [facility] Blood Venipuncture / Unknown 05/22/2024 9:34 AM MOTORSPORTS TECHNICIAN 05/22/2024 10:31 AM MOTORSPORTS TECHNICIAN us Yrn Ttutle MD CHEMISTRY ORDERABLES Final Result Performing Organization Address City/[facility]/ZIP Co de Phone Number [facility] [address] [place] [address] * IRON (FE) (05/22/2024 9:34 AM MOTORSPORTS TECHNICIAN) IRON 69 25 - 156 mcg/dL 05/22/2024 12:02 PM MOTORSPORTS TECHNICIAN [facility] Blood Venipuncture / Unknown 05/22/2024 9:34 AM MOTORSPORTS TECHNICIAN 05/22/2024 10:31 AM MOTORSPORTS TECHNICIAN us Yrn Tuttle MD CHEMISTRY ORDERABLES Final Result Performing Organization Address City/[facility]/ZIP Co de Phone Number [facility] [address] [place] [address] * FERRITIN (05/22/2024 9:34 AM MOTORSPORTS TECHNICIAN) FERRITIN 194 5 - 204 ng/mL 05/22/2024 12:20 PM MOTORSPORTS TECHNICIAN [facility] Blood Venipuncture / Unknown 05/22/2024 9:34 AM MOTORSPORTS TECHNICIAN 05/22/2024 10:31 AM MOTORSPORTS TECHNICIAN us Yrn Tuttle MD CHEMISTRY ORDERABLES Final Result Performing Organization Address City/[facility]/ZIP Co de Phone Number [facility] [address] [place] [address] * (ABNORMAL) CBC WITH AUTO DIFFERENTIAL (05/18/2024 9:46 AM MOTORSPORTS TECHNICIAN) WBC 7.92 4.00 - 12.00 10(3)/mcL 05/18/2024 10:07 AM MOTORSPORTS TECHNICIAN [facility] RBC 3.38(L) 3.80 - 5.30 10(6)/[facility] 05/18/2024 10:07 AM [facility] HEMOGLOBIN (HGB) 10.6(L) 12.0 - 15.8 g/dL 05/18/2024 10:07 AM [facility] HEMATOCRIT (HCT) 33.5(L) 36.0 - 47.0 % 05/18/2024 10:07 AM [facility] MCV 99.1(H) 82.0 - 96.0 fL 05/18/2024 10:07 AM [facility] MCH 31.4 26.0 - 34.0 pg 05/18/2024 10:07 AM [facility] MCHC 31.6 31.0 - 36.0 g/dL 05/18/2024 10:07 AM [facility] PLATELET COUNT 252 140 - 440 10(3)/[facility] 05/18/2024 10:07 AM [facility] RDW 14.2 11.8 - 15.5 % 05/18/2024 10:07 AM [facility] MPV 10.4 9.7 - 12.4 fL 05/18/2024 10:07 AM [facility] NEUTROPHILS 49.0 47.0 - 73.0 % 05/18/2024 10:07 AM [facility] LYMPHOCYTES 36.6 18.0 - 42.0 % 05/18/2024 10:07 AM [facility] MONOCYTES 12.4(H) 4.0 - 12.0 % 05/18/2024 10:07 AM [facility] EOSINOPHILS 1.5 0.0 - 5.0 % 05/18/2024 10:07 AM [facility] BASOPHILS 0.5 0.0 - 1.0 % 05/18/2024 10:07 AM [facility] ABSOLUTE NEUTROPHILS 3.88 1.60 - 7.70 10(3)/[facility] 05/18/2024 10:07 AM [facility] ABSOLUTE LYMPHOCYTES 2.90 1.30 - 3.20 10(3)/[facility] 05/18/2024 10:07 AM MOTORSPORTS TECHNICIAN [facility] ABSOLUTE MONOCYTES 0.98 0.20 - 1.00 10(3)/[facility] 05/18/2024 10:07 AM [facility] ABSOLUTE EOSINOPHIL 0.12 0.00 - 0.40 10(3)/[facility] 05/18/2024 10:07 AM [facility] ABSOLUTE BASOPHILS 0.04 0.00 - 0.10 10(3)/[facility] 05/18/2024 10:07 AM [facility] NRBC PER 100 WBC 0 05/18/19 10:07 AM [facility] Blood Venipuncture / Unknown 05/18/2024 9:46 AM [facility] 05/18/2024 10:03 AM [facility] Samy Galaviz MD HEMATOLOGY ORDERABLES Final Result [facility] [address] [place] [address] * (ABNORMAL) BASIC METABOLIC PANEL W/ CALCIUM TOTAL (05/18/2024 9:46 AM [facility]) SODIUM 142 136 - 145 mmol/L 05/18/2024 10:23 AM [facility] POTASSIUM 3.7 3.5 - 5.1 mmol/L 05/18/2024 10:23 AM [facility] CHLORIDE 105 98 - 107 mmol/L 05/18/2024 10:23 AM [facility] CO2, VENOUS 29 22 - 30 mmol/L 05/18/2024 10:23 AM [facility] ANION GAP 11.7 <18.0 mmol/L 05/18/2024 10:23 AM [facility] GLUCOSE 97 70 - 99 mg/dL 05/18/2024 10:23 AM [facility] BUN 34(H) 10 - 20 mg/dL 05/18/2024 10:23 AM [facility] CREATININE, BLOOD 1.24(H) 0.60 - 1.00 mg/dL 05/18/2024 10:23 AM [facility] BUN/CREATININE RATIO 27(H) 12 - 20 ratio 05/18/2024 10:23 AM [facility] CALCIUM 8.9 8.7 - 10.5 mg/dL 05/18/2024 10:23 AM [facility] IS THE PATIENT REQUIRED TO BE FASTING? No 05/18/2024 10:23 AM [facility] GFR, ESTIMATED 43(L) >=60 05/18/2024 10:23 AM [facility] Comment: Creatinine Clearance is the preferred criteria for selecting drug dose adjustments in renally impaired patients. The GFR is provided as additional pertinent clinical information. GFR is reported in mL/min/1.73 sq m. Calculation based on the Chronic Kidney Disease Epidemiology Collaboration (CKD- EPI) equation refit without adjustment for race. GFR, EST. 50(L) >=60 025 10:23 AM [facility] GFR, EST. NONAFRICAN 41(L) >=60 05/18/2024 10:23 AM [facility] Blood Venipuncture / Unknown 05/18/2024 9:46 AM MOTORSPORTS TECHNICIAN 05/18/2024 10:03 AM MOTORSPORTS TECHNICIAN us Samy Galaviz MD CHEMISTRY ORDERABLES Final R esult [facility] [address] [place] [address] from Last 3 Months Insurance MEDICARE [facility] Advance Directives * Full Code (Latest Code Status on File) Date Activated Date Inactivated Comments 09/15/2020 9:01 PM 09/17/2020 3:25 PM CPR-Full Treat ment: FULL ARREST: Attempt Resuscitation/CPR wit intubation and mechanical ventilation. PRE-ARREST: Use entire range of life support measures to stabilize the patient. Care Teams Water Taxi Driver Relationship Specialty Start Date End Date Yrn Tuttle MD [address] [place] [address] PCP - General Internal Medicine 11/27/15 Samy Galaviz MD [address] [facility] [address] [place] [address] Consulting Physician Interventional Cardiology 12/02/23 Sarah Galaviz, SENIOR JAVA ENGINEER, QUALIFIED CRAFT WORKER ELECTRICIAN [address] [facility], [address] [place] [address] Nurse Practitioner Cardiology 03/08/24
--- OUTSIDE RECORDS SUMMARY | 2024-07-17 13:27 | XMS_ITS | Continuity of Care Document ---
Author Organization [facility] Address [address] [place] [address] Phone Care Team Providers Care Concrete Mixing Truck Driver Name Role Phone Leland Julio MD Unavailable [...] Providers Copied on Encounter Work/medical disability examination [facility], [address] [place] [address], [id number], tel:[phone] [facility] [employer] Nori Ha. [address] [place] [address], [id number], . tel:[phone] Family History Family Member Type Diagnosis Age At Onset No Information Payers Payer name Insurance type Covered republican ID Ruthann davila(s) [employer] [id number] Social History Type Description Quantity Date Captured [...]
== END 2024-07-17 12:30 | disposition home or self-care (01) ==
PROVIDERS: PCP Internal Medicine
DX: M25.522 Pain in left elbow (principal); I10 Essential (primary) hypertension; E78.00 Pure hypercholesterolemia, unspecified; M19.90 Unspecified osteoarthritis, unspecified site
CPT/HCPCS: 73080; 99213; G0463

== ENCOUNTER 2024-12-19 17:44 | Emergency (ER) | payer MEDICARE, OTHER, SELFPAY ==
--- OUTSIDE RECORDS SUMMARY | 2011-07-29 06:20 | XMS_ITS | Continuity of Care Document ---
Author Organization [facility] Address [address] [place] [address] Phone Care Team Providers Care Ski Lift Operator Name Role Phone Nori CANTU MD, Leland Unavailable Unavaila ble Allergies, Adverse Reactions, Alerts Substance Reaction Status Criticality Sulfa (Sulfonamide Antibiotics) Active No Information Procedures Procedure Date Work/medical disability examination [facility] X-ray exam of shoulder, complete 2011 Prolonged serv, w/o contact, 1st hr Advance Directives Directive Yes / No Effective Date File Name No Information Encounters Encounter Description Practice Location Reason(s) For Visit Diagnoses Date Provider Providers Copied on Encounter Work/medical disability examination [facility], [address] [place] [address], [id number], tel:[phone] [facility] Nori Ha. [address] [place] [address], [address], [id number], [place]. tel:[phone] Family History Family Member Type Diagnosis Age At Onset No Information Payers Payer name Insurance type Covered constitution party ID Authorlakhwindera lola(s) [employer] [id number] Social History Type Description Quantity Date Captured Comments Sex Female Smoking Status No Information Chief Complaint And Reason For Visit No Information Reason For Referral Reason For Referral No Information History Of Present Illness Encounter Date Complaint History Of Prese nt Illness No Information Functional Status Date Functional Assessmen t No Information Instructions Date Instruction Additional Infor mation No Information Assessments Type Assessment Date No Information Patient Care Teams Name Effective Dates (start - stop) Status Members No Information
--- NOTE | ~2024-12-19 | XR_ITS ---
XR hip BI 2V w AP pelvis 12/19/2024 18:58 Indication: Hip pain after sliding out of bed Procedure: AP pelvis and 2 views each hip Comparison: No prior studies for comparison. Findings: No acute fracture. Pelvic rings intact. There are pelvic phleboliths. There is lower lumbar spondylosis. Osteopenia. Small sclerotic lesion right ilium, likely bone island. Impression: 1: No acute fracture. Reviewed, dictated and finalized at location O. Impression: 1: No acute fracture.
--- OUTSIDE RECORDS SUMMARY | 2024-12-19 17:47 | XMS_ITS | Encounter Summary ---
Author Organization [facility] Address [address] [place] [address] Phone Care Team Providers Care Renewals Specialist Name Role Phone Yrn Tuttle MD Primary Care Provider [phone] Samy Galaviz MD Unavailable [phone] Sarah Galaviz APRN, FLAVOR ROOM WORKER Unavailable [phone] Reason for Visit * Reason Comments Medication Refill Encounter Details Date Type Department Care Team (Late st Contact Info) Description 08/31/2020 Refill [facility] - Internal Medicine - [place] [address] [place] [address] Yrn Tuttle MD [address] [place] [address] Medication Refill Social History Tobacco Use Types [...] Care Team (Late st Contact Info) Description 01/26/2025 11:00 AM CDT Office Visit [facility] - Cardiology - [place] [address] [place] [address] Loyda Tobar MD [address] [facility] [address] [place] [address] 02/06/2025 2:00 PM CDT Appointment [facility] Cardiology Services [address] [place] [address] Samy Galaviz MD #[address] [address] Discharge Disposition: Discharged to home or Selfcare 02/27/2025 11:00 AM DIP PAINTER Office Visit [facility] - Primary Care - [place] [address] [place] [phone] Yrn Tuttle MD [address] [place] [address] documented as of this encounter Visit Diagnoses Not on filedocumented in this encounter Additional Health Concerns Assessment Noted Time PHQ-9 Depression Total Score: 0 06/07/19 21 11:00 AM DIP PAINTER documented as of this encounter Care Teams Renewals Specialist Relationship Specialty Start Date End Date Yrn Tuttle MD PCP - General Internal Medicine 11/27/15 Samy Galaviz MD #[address] [place] [address] Consulting Physician Interventional Cardiology 12/02/23 10/22/24 Sarah Galaviz APRN, FLAVOR ROOM WORKER #[address] [facility], [address] [place] [address] Nurse Practitioner Cardiology 03/08/24 10/22/24 documented as of this encounter
--- OUTSIDE RECORDS SUMMARY | 2024-12-19 17:47 | XMS_ITS | Clinical Summary ---
Author Organization [facility] Address [address] [place] [address] Care Team Providers Care Social Services Director Name Role Phone Unknown, Provider Primary Care Provider Unavaila ble Source Comments [facility],non-owned Affiliates and Associated Physician Practices is amultiple site organization consisting of ambulatory clinics and hospital sitesin [place], [place], [place] and [place]. This disclosure is being madepursuant to the Care Everywhere program and may not contain all information available regarding this patient. Last updated 17.[facility] Allergies Active Allergy Reactions Criticality Noted Date Comments Sulfa Antibiotics Urticaria Medium 01/20/2024 Sulfamethoxazole W-Trimethoprim Urticaria Medium 01/10 60 years ago Medications * Be aware that medications may not be up to date on this document. Alwaysverify current medications with the patient. aspirin EC (Ecotrin) 81 MG tablet Take 1 (one) tablet by mouth once daily Active atorvastatin (Lipitor) 40 MG tablet Take 1 (one) tablet by mouth at bedtime 11/29/2023 Active diphenhydrAMINE -APAP, sleep, (Tylenol PM Es) 25-500 MG tablet Take 1 (one) tablet by mouth nightly as needed Active furosemide (Lasix) 20 MG tablet Take 1 (one) tablet by mouth once daily 11/29/2023 Active lisinopril-hydr oCHLOROthiazide (Prinzide; Zestoretic) 20-12.5 MG tablet Take 1 [...] and heating? Not hard at all 02/15/2024 [facility] of Occupat ional Health - Occupational Stress [...] any time in the past 12 m [facility], were you homeless or living in a longterm (including now)? No 02/15/2024 Comments Unknown Sex and Gender Information Value Date Recorded Sex Assigned at Not on file Legal Sex Female 2:57 PM CDT Gender Identity Not on file Sexual Orientation Not on file Last Filed Vital Signs Vital Sign Reading Time Taken Comments Blood Pressure 165/66 02/16/2024 7:48 AM VENEER PRESS OPERATOR Pulse 89 02/16/2024 7:48 AM VENEER PRESS OPERATOR Temperature 36.3 C (97.4 F) 02/16/2024 7:48 AM VENEER PRESS OPERATOR Respiratory Rate 20 02/16/2024 7:48 AM VENEER PRESS OPERATOR Oxygen Saturation 93% 02/16/2024 7:48 AM VENEER PRESS OPERATOR Inhaled Oxygen Concentration - - Weight 63.5 kg (140 lb) 02/16/2024 7:48 AM VENEER PRESS OPERATOR Height 175.3 cm (5' 9) 02/16/2024 7:48 AM VENEER PRESS OPERATOR Body Mass Index 20.67 02/16/2024 7:48 AM VENEER PRESS OPERATOR Plan of Treatment Health Maintenance Due Date Last Done Comments BONE DENSITY TESTING 1940 MEDICARE AWV 12 MONTHS 1940 DTAP/TDAP/TD VACCINES (1 - Tdap) 06/23/1958 PNEUMOCOCCAL VACCINE 50+ (1 of 1 - PCV) 06/23/1989 ZOSTER VACCINE (1 of 2) 06/23/1989 Respiratory Syncytial Virus (RSV) Vaccine Pt: or over 60 yrs (1 - 1-dose 75+ series) 06/23/2014 DEPRESSION SCREENING 04/12/2024 COVID-19 VACCINE (2 - season) 2024 07/17/2020 INFLUENZA VACCINE (#1) 2024 , 12/16/2021, 03/11/2021, Additional history exists HEPATITIS B VACCINE [...] this topic Medical Devices Implanted Type Area Steak Sauce Maker Device Identifier Shelf Expiration Date Model / Serial / Lot Vlv Aor Evolut Fx+ 26mm 20-23mm - [id number] Implanted:Qty: 1 on 02/15/2024 by Samy Galaviz MD at [facility] [employer] [id number] 10/14/2025 EVFXPLU S-26 / [id number] Explanted Type Area Steak Sauce Maker Device Identifier Shelf Expiration Date Model / Serial / Lot Cath Pace Eltrd Biplr Dist Tip Balln Flw - [id number] Explanted:Qty: 1 on 02/15/2024 by Samy Galaviz MD at [facility] [employer] [id number] 08/09/2025 [id number] / [id number] Insurance MEDICARE MEDICARE [facility] Advance Directives * Full Code (Latest Code Status on File) Date Activated Date Inactivated Comments 02/15/2024 10:00 AM 02/16/2024 2:23 PM Care Teams Social Services Director Relationship Specialty Start Date End Date Unknown, Provider PCP - General 01/20/24
--- OUTSIDE RECORDS SUMMARY | 2024-12-19 17:47 | XMS_ITS | Clinical Summary ---
Author Organization [facility] Medical Office Building B Address [address] [place] [address] Care Team Providers Care Wireless Manager Name Role Phone Yrn Tuttle MD Primary Care Provider [phone] Jo Harmon PT Unavailable Unavailable Allergies Active [...] on file Legal Sex Female 11:49 PM LETTERSET PRESS SET UP OPERATOR Gender Identity Not on file Sexual Orientation Not on file Obstetrics History Last Filed Vital Signs Vital Sign Reading Time Taken Comments Blood Pressure 109/68 05/14/2023 10:43 AM LETTERSET PRESS SET UP OPERATOR Pulse 83 05/14/2023 10:43 AM LETTERSET PRESS SET UP OPERATOR Temperature 36.6 C (97.8 F) 07/22/2020 9:14 AM CDT Respiratory Rate 16 10/04/2020 9:04 AM CDT Oxygen Saturation - - Inhaled Oxygen Concentration - - Weight 61.3 kg (135 lb 3.2 oz) 05/14/2023 10:43 AM LETTERSET PRESS SET UP OPERATOR Height 149.9 cm (4' 11) 05/14/2023 10:43 AM LETTERSET PRESS SET UP OPERATOR Body Mass Index 27.31 05/14/2023 10:43 AM LETTERSET PRESS SET UP OPERATOR Plan of Treatment Health Maintenance Due Date Last Done Comments Depression Screening 1940 Fall Risk Assessment 1940 Osteoporosis Screening-Bone Density Scan 1940 Hepatitis B Screening 06/23/1957 Zoster Vaccine (1 of 2) 06/23/1989 Well Visit 65+ 06/23/2004 DTaP/Tdap/Td Vaccine (1 - Tdap) 01/22/2009 9 Influenza Vaccine (#1) 2024 2, 03/11/2021, 01/09/2020, Additional history exists Pneumococcal vaccine 65+ Completed 020, 04/13/2009, 01/21/2009 [place] [address] [address] [facility] [place] [address] MEDICARE [facility] Care Teams Wireless Manager Relationship Specialty Start Date End Date Yrn Tuttle MD [address] [place] [address] PCP - General 01/21/09 Jo Harmon, PT Physical Therapist Physical Therapy 05/20/22
--- OUTSIDE RECORDS SUMMARY | 2024-12-19 17:47 | XMS_ITS | Encounter Summary ---
Author Organization [facility] Address [address] [place] [address] Phone Care Team Providers Care Placement Specialist Name Role Phone Yrn Tuttle MD Primary Care Provider [phone] Samy Galaviz MD Unavailable [phone] Sarah Galaviz APRN, SLAB STRIPPER Unavailable +- [phone] Reason for Visit * Reason Comments Medication Refill Encounter Details Date Type Department Care Team (Late st Contact Info) Description 11/01/2023 Refill [facility] - Internal Medicine - [place] [address] [place] [address] Yrn Tuttle MD [address] [place] [address] Medication Refill Social History Tobacco Use Types Packs/Day Years Used Date Smoking Tobacco: Never Passive Smoke Exposure: Never Smokeless Tobacco: Never Alcohol Use Standard Drinks/Week Comments No 0 (1 standard drink = 0.6 oz pur e alcohol) [facility] Utilities Answer Date Recorded In the past 12 months has e electric, gas, oil, or water [employer] threatened to shut off services in your home? Patient declined 04/15/2023 Social Connection and Isolation Panel Answer Date Recorded In a typical week, how many times do you talk on the phone with family, friends, or neighbors? Patient declined 04/15/2023 How often do you get togethe r with friends or relatives? Patient declined 04/15/2023 How often do you attend buddhism or nondenominational serv ices? Patient declined 04/15/2023 Do you belong to any clubs o r organizations such as buddhism groups, unions, fraternal or athletic groups, or [...] Recorded Total Score - Questions 1-9 0 03/0 05/2021 [facility] - Occupational [...] place to sleep or slept in a skilled nursing (including now)? Patient declined 04/15/2023 Education Answer [...] Description 01/26/2025 11:00 AM CDT Office Visit [facility] Medical [facility] - Cardiology [facility] [address] [place] [address] Loyda Tobar MD [address] [address] 02/06/2025 2:00 PM CDT [facility]ment [facility] [address] [place] [address] Samy Galaviz MD #2 [facility] [address] [place] [address] Discharge Disposition: Discharged to home or Selfcare 02/27/2025 11:00 AM ASSISTANT GROCERY STORE MANAGER Office Visit [facility] - Primary Care - [place] [address] [place] [phone] Yrn Tuttle MD [address] [place] [address] documented as of this encounter Visit Diagnoses Not on filedocumented in this encounter Additional Health Concerns Assessment Noted Time PHQ-9 Depression Total Score: 0 04/15/19 24 9:15 AM ASSISTANT GROCERY STORE MANAGER documented as of this encounter Care Teams Placement Specialist Relationship Specialty Start Date End Date Yrn Tuttle MD PCP - General Internal Medicine 11/27/15 Samy Galaviz MD [address]2 [facility] [address] [place] [address] Consulting Physician Interventional Cardiology 12/02/23 10/22/24 Sarah Galaviz APRN, SLAB STRIPPER #2 [facility], [address] [place] [address] Nurse Practitioner Cardiology 03/08/24 10/22/24 documented as of this encounter
--- OUTSIDE RECORDS SUMMARY | 2024-12-19 17:47 | XMS_ITS | Clinical Summary ---
Author Organization [facility] Address [address] [place] [address] Phone Care Team Providers Care Resident Medical Officer Name Role Phone Yrn Tuttle MD Primary Care Provider [phone] Allergies Active Allergy Reactions Criticality Noted Date Comments Sulfanilamide Hives 10/31/2019 Reaction: Hives, Medications aspirin 81 MG Chewable Tablet Take 1 Tablet by mouth daily. 100 Tablet 1 Active lisinopril-hyd roCHLOROthiazi de (PRINZIDE, ZESTORETIC) 20-12.5 MG Tablet Take 1 Tablet by mouth daily. 90 Tablet 1 5 Active atorvastatin (LIPITOR) 40 MG Tablet Take 1 Tablet by mouth nightly. 90 Tablet 2 5 Active furosemide (LASIX) 20 MG Tablet Take 1 Tablet by mouth daily. 90 Tablet 1 5 Active potassium chloride CR (KLORCON) 10 MEQ Tablet Controlled Release TAKE 1 TABLET BY MOUTH DAILY 90 Tablet 5 Active potassium chloride CR (KLORCON) 10 MEQ Tablet Controlled Release Take 1 Tablet by mouth daily. 90 Tablet 1 5 025 Discontinued furosemide (LASIX) 20 MG Tablet Take 1 Tablet by mouth daily. 90 Tablet 1 5 025 Discontinued(Re order) Active Problems Problem Noted Date Diagnosed Date Severe aortic stenosis 12/03/2023 Nonrheumatic aortic valve stenosis 12/02/2023 Overview (05/16/2024): TAVR- 02/2024 Nonrheumatic mitral valve regurgitation 12/02/19 24 Stage 3b chronic kidney disease 07/27/2023 Bilateral lower extremity edema 03/11/2021 S/P total knee arthroplasty, left 08/12/2020 GERD without esophagitis 06/07/2020 Essential hypertension, benign 12/12/2019 Other hyperlipidemia 12/12/2019 Generalized osteoarthritis 12/12/2019 Hiatal hernia with GERD without esophagitis 04/2019 Benign skin lesion of neck 10/31/2019 Lipoma of skin and subcutaneous tissue Resolved Problems Problem Noted Date Diagnosed Date Resolved Date Bilateral lower extremity edema 07/27/2023 07/27/2023 Hypokalemia 10/19/2022 11/24/2024 Chronic anemia 09/11/2021 11/24/2024 Paroxysmal atrial fibrillation 09/17/2020 06/11/2021 Moderate aortic stenosis 08/01/2020 Primary osteoarthritis of left knee 06/07/2020 08/12/2020 Encounters Date Type Department Care Team Description 12/19/[address] [facility] - Internal Medicine - [place] [address] [place] [address] Yrn Tuttle MD Medication Refill 12/06/2024 Results Follow-Up [facility] Primary [facility] - [address] [place] [address] [facility] BONE DENSITOMETRY AXIAL SKELETON 12/05/2024 10:21 AM CDT - 12/05/2024 11:59 PM CDT Hospital Encounter [facility] [address] [place] [address] Yrn Tuttle MD Discharge Disposition: Discharged to home or Selfcare 12/05/2024 Travel 11/24/2024 10:40 AM CDT Office Visit [facility] Primary Care - [address] [place] [address] Yrn Tuttle MD Essential hypertension, benign (Primary Dx); Asymptomatic menopausal state; Other hyperlipidemia; Generalized osteoarthritis; Stage 3b chronic kidney disease (HCC); Bilateral lower extremity edema Discharge Disposition: Discharged to home or Selfcare 11/24/2024 Travel from Last 3 Months Immunizations Immunization Administration Dates Next Due Covid-19 Vaccine, Vector-nr, Rs-ad26, Pf, 0.5 Ml ([employer]) 07/17/2020 Influenza Vaccine 01/06/2019 Influenza Vaccine, Quadrivalent, [...] drink = 0.6 oz pur e alcohol) [facility] Utilities Answer Date Recorded In the past 12 months has [employer], or water [employer] threatened to shut off services in your home? Patient declined 04/15/2023 Social Connection and Isolation Panel Answer Date Recorded In a typical week, how many times do you talk on the phone with family, friends, or neighbors? Patient declined 04/15/2023 How often do you get togethe r with friends or relatives? Patient declined 04/15/2023 How often do you attend holiness or roman catholic serv ices? Patient declined 04/15/2023 Do you belong to any clubs o r organizations such as holiness groups, unions, fraternal or athletic groups, or [...] Total Score - Questions 1-9 0 07/2024 [facility] - Occupational Stress Questionnaire Answer Date Recorded [...] place to sleep or slept in a long term (including now)? Patient declined 04/15/2023 Education Answer [...] Sign Reading Time Taken Comments Blood Pressure 128/64 11/24/2024 10:39 AM CDT Pulse 84 11/24/2024 10:39 AM CDT Temperature 36.4 C (97.5 F) 11/24/2024 10:39 AM CDT Respiratory Rate 14 07/25/2024 3:54 PM CDT Oxygen Saturation 98% 11/24/2024 10:39 AM CDT Inhaled Oxygen Concentration - - Weight 59 kg (130 lb) 11/24/2024 10:39 AM CDT Height 149.9 cm (4' 11) 11/24/2024 10:39 AM CDT Body Mass Index 26.26 11/24/2024 10:39 AM CDT Plan of Treatment Upcoming Encounters Date Type Department Care Team (Late st Contact Info) Description 01/26/2025 11:00 AM CDT Office Visit [facility] Medical Group - Cardiology - [place] [address] [place] [address] Loyda Tobar MD 2 [facility] [address] [address] 02/06/2025 2:00 PM CDT [facility] [address] [place] [address] Samy Galaviz MD #2 [facility] [address] [place] [address] Discharge Disposition: Discharged to home or Selfcare 02/27/2025 11:00 AM BAR POINTER [facility] - [place] [address] [place] [address] Yrn Tuttle MD [address] [place] [address] Health Maintenance Due Date Last Done Comments Hepatitis C Virus (HCV) Screening 1940 TdaP Immunization 1940 Zoster Immunization (1 of 2) 06/23/1989 Influenza Immunization (#1) 12/11/202401/12, 01/13/2023, 12/16/2021, Additional history exists SARS-COV-2 Immunization ( season) 2024 03/12/2021, 07/17/2020 DEXA Bone Density 12/05/2026 12/05/2024 Pneumococcal Immunization (50+ years) Completed 01/09/2020, 04/13/2009, 01/21/2009 Pneumococcal Immunization Combined Discontinued 01/09/2020, 04/13/2009, 01/21/2009 Respiratory Syncytial Virus (RSV) Immunization (Adult) Completed 06/05/2024 Hepatitis B Immunization Aged Out No longer eligible based on patient's age to complete this topic Human Papillomavirus (HPV) Immunization Aged Out No longer eligible based on patient's age to complete this topic Meningococcal Immunization (ACWY) Aged Out No longer eligible based on patient's age to complete this topic Rotavirus Immunization Aged Out No lo nger eligible based on patient's age to complete this topic Medical Devices Implanted Type Area Bpm Developer Device Identifier Shelf Expiration Date Model / Serial / Lot Cement Bone Smartset Gentamicin High Viscosity 40gm - [id number] Implanted:Qty: 1 on 08/12/2020 by Doc Lopez MD at [facility] IMPLANT Left: Knee [employer]uy [employer] 05/12/2021 [id number] / [id number] / [id number] Device Clsr 5fr Mynxgrip Application Performance Engineer Vasc Bln Cath Lock Syr Integrate Sealant 10ml Disp - [id number] Implanted:Qty: 1 on 12/27/2023 by Samy Galaviz MD at [facility] IMPLANT [employer] [id number] / / [id number] Attune Femoral Porocoat Cruciate Retaining Implanted:Qty: 1 on 08/12/2020 by Doc Lopez MD at [facility] Left: Knee DePuy 05/12/2027 [id number] / [id number] / [id number] Attune Tibial Insert Fixed Bearing Cruciate Retaining Implanted:Qty: 1 on 08/12/2020 by Doc Lopez MD at [facility] Left: Knee DePuy 11/09/2020 [id number] / 1516-20-308 / [id number] Attune Knee System Tibial Base Fixed Bearing Implanted:Qty: 1 on 08/12/2020 by Doc Lopez MD at [facility] Left: Knee [employer]Puy 06/09/2028 [id number] / [id number] / [id number] Procedures Procedure Name Priority Date/Time Associated Diagnosis Comments [facility] BONE DENSITOMETRY AXIAL SKELETON Routine 12/05/2024 10:28 AM CDT Asymptomatic menopausal state from Last 3 Months Results * [facility] BONE DENSITOMETRY AXIAL SKELETON (12/05/2024 10:28 AM CDT) Anatomical Region Laterality Modality BODY N/A Computed Radiogr aphy 12/05/2024 7:20 PM CDT Impressions 12/05/2024 7:22 PM CDT IMPRESSION: 1. Osteoporosis. REFERENCE: Bone mineral density: T-Score: Normal (T-score above or = -1.0) Low bone mass (T-score between -1.0 and -2.5) replaces the previously used term osteopenia Osteoporosis (T-score = or below -2.5) Z-Score: Within the expected range for age (Z-score above -2.0) Below the expected range for age (Z-score is -2.0 or below) Please see below follow up recommendations. Medical evaluation for secondary causes of low bone mineral density may be appropriate. FRAX is a World Health Organization validated fracture risk assessment tool that calculates a person's 10 year probability of a major osteoporosis related fracture and hip fracture. According to the National Osteoporosis Foundation guidelines, postmenopausal women and men age 50 or older with low bone mass and a 10 year probability of a major osteoporosis related fracture = or greater than 20% or a 10 year probability of a hip fracture = or greater than 3% should be considered for pharmacological treatment for the prevention of osteoporosis. For further information, including treatment recommendations, please refer to the 2019 ISCD Official Positions (http://www.iscd.org) and the NOF's Clinician's Guide to Prevention and Treatment of Osteoporosis (http://www.nof.org/professionals/clinical-guidelines) Narrative 12/05/2024 7:22 PM CDT EXAM DESCRIPTION: [facility] BONE DENSITOMETRY AXIAL SKELETON REASON FOR STUDY: 84 y/o year old F with given history of: Asymptomatic menopausal state Bpm Developer/Model: [employer] (S/N [id number]) Facility LSC value of 0.028 for the AP spine and 0.033 for the femur. CLINICAL INFORMATION: Current height: 59 inches Maximum height: 61 inches Weight: 130 pounds Risk factors: Postmenopausal, adult fracture COMPARISON: None available FINDINGS: AP LUMBAR SPINE L1-L4: Total BMD is 1.004 g/cm2 T-score is -1.5 LEFT HIP: Total BMD is 0.666 g/cm2 T-score is -2.7 Femoral neck BMD is 0.667 g/cm2 T-score is -2.7 FRAX: FRAX not reported due to T-scores of hip, femoral neck and/or spine being at or below -2.5 (Osteoporosis). THIS IS AN ELECTRONICALLY VERIFIED FINAL REPORT 12/05/2024 7:20 PM - Electronically signed by Leland Thornton M.D. MF: [email or web address] Report ID: [id number] Reading Location: [place] [address] Procedure Note Leland Thornton MD - 12/05/2024 EXAM DESCRIPTION: [facility] BONE DENSITOMETRY AXIAL SKELETON REASON FOR STUDY: 84 y/o year old F with given history of: Asymptomatic menopausal state Bpm Developer/Model: [employer] (S/N [id number]) Facility LSC value of 0.028 for the AP spine and 0.033 for the femur. CLINICAL INFORMATION: Current height: 59 inches Maximum height: 61 inches Weight: 130 pounds Risk factors: Postmenopausal, adult fracture COMPARISON: None available FINDINGS: AP LUMBAR SPINE L1-L4: Total BMD is 1.004 g/cm2 T-score is -1.5 LEFT HIP: Total BMD is 0.666 g/cm2 T-score is -2.7 Femoral neck BMD is 0.667 g/cm2 T-score is -2.7 FRAX: FRAX not reported due to T-scores of hip, femoral neck and/or spine being at or below -2.5 (Osteoporosis). THIS IS AN ELECTRONICALLY VERIFIED FINAL REPORT 12/05/2024 7:20 PM - Electronically signed by Leland Thornton M.D. MF: [email or web address] Report ID: [id number] Reading Location: [place] [address] IMPRESSION: 1. Osteoporosis. REFERENCE: Bone mineral density: T-Score: Normal (T-score above or = -1.0) Low bone mass (T-score between -1.0 and -2.5) replaces the previously used term osteopenia Osteoporosis (T-score = or below -2.5) Z-Score: Within the expected range for age (Z-score above -2.0) Below the expected range for age (Z-score is -2.0 or below) Please see below follow up recommendations. Medical evaluation for secondary causes of low bone mineral density may be appropriate. FRAX is a World Health Organization validated fracture risk assessment tool that calculates a person's 10 year probability of a major osteoporosis related fracture and hip fracture. According to the National Osteoporosis Foundation guidelines, postmenopausal women and men age 50 or older with low bone mass and a 10 year probability of a major osteoporosis related fracture = or greater than 20% or a 10 year probability of a hip fracture = or greater than 3% should be considered for pharmacological treatment for the prevention of osteoporosis. For further information, including treatment recommendations, please refer to the 2019 ISCD Official Positions (http://www.iscd.org) and the NOF's Clinician's Guide to Prevention and Treatment of Osteoporosis (http://www.nof.org/professionals/clinical-guidelines) Yrn Tuttle MD IMG DEXA ORDERABLES Final R esult from Last 3 Months Insurance MEDICARE [facility] Advance Directives * Full Code (Latest Code Status on File) Date Activated Date Inactivated Comments 09/15/2020 9:01 PM 09/17/2020 3:25 PM CPR-Full Treat ment: FULL ARREST: Attempt Resuscitation/CPR wit intubation and mechanical ventilation. PRE-ARREST: Use entire range of life support measures to stabilize the patient. Care Teams Resident Medical Officer Relationship Specialty Start Date End Date Yrn Tuttle MD PCP - General Internal Medicine 8/17/16
--- OUTSIDE RECORDS SUMMARY | 2024-12-19 17:47 | XMS_ITS | Encounter Summary ---
Author Organization [facility] Address [address] [place] [address] Phone Care Team Providers Care Pocket Machine Operator Name Role Phone Yrn Tuttle MD Primary Care Provider [phone] Reason for Visit * Reason Comments Medication Refill Encounter Details Date Type Department Care Team (Late st Contact Info) Description 12/19/2024 [facility]ill [facility] - [place] [address] [place] [address] Yrn Tuttle MD [address] [place] [address] Medication Refill Social History Tobacco Use Types Packs/Day Years Used Date Smoking Tobacco: Never Passive Smoke Exposure: Never Smokeless Tobacco: Never Alcohol Use Standard Drinks/Week Comments No 0 (1 standard drink = 0.6 oz pur e alcohol) [facility] Utilities Answer Date Recorded In the past 12 months has [employer] electric, gas, oil, or water company threatened [...] declined 04/15/2023 How often do you attend islam or islam serv ices? Patient declined 04/15/2023 Do you belong to any clubs o r organizations such as islam groups, unions, fraternal or athletic groups, or [...] Total Score - Questions 1-9 0 07/2024 [employer] [facility] Occupat ional Health - Occupational Stress [...] place to sleep or slept in a half-way (including now)? Patient declined 04/15/2023 Education Answer [...] on file documented as of this encounter Miscellaneous Notes * Telephone Encounter - Isabela Almaraz, RN - 12/19/2024 12:09 PM CDT Medication(s) refilled and signed per [facility] Chronic Medication Refill Standing Order for Pediatricand Adult Patients. Requested Prescriptions Pending Prescriptions Disp Refills potassium chloride CR (KLORCON) 10 MEQ Tablet Controlled Release [Pharmacy Med Name: POTASSIUM CL 10MEQ ER TABLETS] 90 Tablet 0 Sig: TAKE 1 TABLET BY MOUTH DAILY Potassium Supplement Protocol Passed - 12/19/2024 12:09 PM Passed - Normal serum potassium in past 12 months POTASSIUM Date Value Ref Range Status 08/14/2024 3.6 3.5 - 5.1 mmol/L Final Passed - Visit with relevant provider in past 12 months or upcoming 90 days Recent Visits Date Type Provider Dept 11/24/24 Office Visit Yrn Tuttle MD [facility] 08/14/24 Office Visit Yrn Tuttle MD [facility] [place] 05/16/24 Office Visit Yrn Tuttle MD [facility] [place] 02/10/24 Office Visit Yrn Tuttle MD [facility] [place] Showing recent visits within past 365 days and meeting all other requirements Future Appointments Date Type Provider Dept 02/27/25 Appointment Yrn Tuttle MD [facility] Showing future appointments within next 90 days and meeting all other requirements documented in this encounter Plan of Treatment Upcoming Encounters Date Type Department Care Team (Late st Contact Info) Description 01/26/2025 11:00 AM CDT Office Visit [facility] - Cardiology - [place] [address] [place] [address] Loyda Tobar MD [address] [address] 02/06/2025 2:00 PM CDT Appointment [facility] Services 1 [place] [address] Samy Galaviz MD #2 [facility] [address] [place] [address] Discharge Disposition: Discharged to home or Selfcare 02/27/2025 11:00 AM PARKING CONTROL OFFICER Office Visit [facility] - Primary Care - [place] [address] [place] [address] Yrn Tuttle MD [address] [place] [address] documented as of this encounter Visit Diagnoses Not on filedocumented in this encounter Additional Health Concerns Assessment Noted Time PHQ-9 Depression Total Score: 0 05/16/19 10:28 AM PARKING CONTROL OFFICER documented as of this encounter Care Teams Pocket Machine Operator Relationship Specialty Start Date End Date Yrn Tuttle MD PCP - General Internal Medicine 11/27/15 documented as of this encounter
--- OUTSIDE RECORDS SUMMARY | 2024-12-19 17:47 | XMS_ITS | Encounter Summary ---
Author Organization [facility] Address [address] [place] [address] Phone Care Team Providers Care Welfare Supervisor Name Role Phone Yrn Tuttle MD Primary Care Provider [phone] Samy Galaviz MD Unavailable [phone] Sarah Galaviz APRN, WEB APPLICATIONS DEVELOPER Unavailable +- [phone] Reason for Visit * Reason Comments Medication Refill Encounter Details Date Type Department Care Team (Late st Contact Info) Description 05/31/2024 Refill [facility] Medical Group - Internal Medicine - [place] [address] [place] [address] Yrn Tuttle MD [address] [place] [address] Medication Refill Social History Tobacco Use Types Packs/Day Years Used Date Smoking Tobacco: Never Passive Smoke Exposure: Never Smokeless Tobacco: Never Alcohol Use Standard Drinks/Week Comments No 0 (1 standard drink = 0.6 oz pur e alcohol) [facility] Utilities Answer Date Recorded In the past 12 months has e electric, gas, oil, or water [employer] threatened to shut off services in your home? Patient declined 04/15/2023 Social Connection and Isolation Panel Answer Date Recorded In a typical week, how many times do you talk on the phone with family, friends, or neighbors? Patient declined 04/15/2023 How often do you get togethe r with friends or relatives? Patient declined 04/15/2023 How often do you attend taoism or anabaptist serv ices? Patient declined 04/15/2023 Do you belong to any clubs o r organizations such as taoism groups, unions, fraternal or athletic groups, or [...] Total Score - Questions 1-9 0 07/2024 [facility] - Occupational Stress [...] place to sleep or slept in a residential (including now)? Patient declined 04/15/2023 Education Answer [...] 01/26/2025 11:00 AM CDT Office Visit [facility] Medical [facility] - Cardiology [facility] [address] [place] [address] Loyda Tobar MD [address] [address] 02/06/2025 2:00 PM CDT [facility]ment [facility] [address] [place] [address] Samy Galaviz MD [address]2 [facility] [address] [place] [id number] Discharge Disposition: Discharged to home or Selfcare 02/27/2025 11:00 AM BONE COOKING OPERATOR Office Visit [facility] - Primary Care - [place] [id number] [place] [address] Yrn Tuttle MD [address] [place] [address] documented as of this encounter Visit Diagnoses Not on filedocumented in this encounter Additional Health Concerns Assessment Noted Time PHQ-9 Depression Total Score: 0 05/16/19 10:28 AM BONE COOKING OPERATOR documented as of this encounter Care Teams Welfare Supervisor Relationship Specialty Start Date End Date Yrn Tuttle MD PCP - General Internal Medicine 11/27/15 Samy Galaviz MD [address]2 [facility] [address] [place] [address] Consulting Physician Interventional Cardiology 12/02/23 10/22/24 Sarah Galaviz APRN, WEB APPLICATIONS DEVELOPER #2 [facility], [address] [place] [address] Nurse Practitioner Cardiology 03/08/24 10/22/24 documented as of this encounter
[2024-12-19 17:54] VITALS: BP 116/41; PULSE 102; RESP 18; TEMP 37.7; O2SAT 97
--- NOTE | 2024-12-19 18:47 | ED_ITS ---
HPI - General Adult General Chief complaint: Fall Stated complaint: Fall Source: patient and family Mode of arrival: ambulatory Limitations: no limitations History of Present Illness HPI narrative: Patient presents for evaluation after sliding down from her bed to the floor this afternoon. She was wearing socks and states that her feet started to slip on the hardwood floors. She assisted herself slowly down to the ground, landing on her buttocks. She did not hit her head. No loss of consciousness. She is not on blood thinners. Her was unable to get her up so got a neighbor to assist. He recommended patient seek a medical evaluation. She tells me that she does not have any pain whatsoever. She recently had a bone density and states she was diagnosed with osteoporosis. Related Data Home Medications ?Medication ?Instructions ?Recorded ?Confirmed ?Last Taken ?Type atorvastatin 40 mg tablet 40 mg PO DAILY 07/03/2006/11 Unknown History lisinopril 20 2 tablet PO DAILY 07/03/20 0 07/03/20 Unknown History mg-hydrochlorothiazide 12.5 mg tablet furosemide 20 mg tablet mg 12/19/24 Unknown History potassium chloride 10 mEq meq PO 12/19/24 Unknown His tory tablet,extended release Allergies Allergy/AdvReac Type Severity Reaction Status Date / Time No Known Allergies Allergy Verified 12/19/24 17:57 Review of Systems Review of Systems: CONSTITUTIONAL: Denies fever, chills, or sweats. EYES: Denies visual changes, redness, or discharge. ENT: Denies rhinorrhea, congestion, sore throat, or otalgia. CARDIOVASCULAR: Denies chest pain, palpitations, or edema. RESPIRATORY: Denies cough or dyspnea. GASTROINTESTINAL: Denies abdominal pain, nausea, vomiting, or diarrhea. GENITOURINARY: Denies dysuria or hematuria. SKIN: Denies rash or itching. MUSCULOSKELETAL: Denies back pain, joint pain, or myalgia. NEUROLOGIC: Denies headache, numbness, dizziness, or weakness. PSYCHIATRIC: Denies anxiety or depression. [facility] Past Medical History Medical History Hypertension Hypercholesterolemia Surgical History Surgical History History of knee replacement Family History Family History Mother Family history non-contributory Social History Social History Smoking status: Never smoker Living arrangements: with family Gender identity (if verbalized by the patient): Female Sexual Orientation (if Verbalized by the Patient): Straight or Heterosexual Spiritual care concerns: No Exam Narrative: GENERAL: Well-appearing, well-nourished, and in no acute distress. HEAD: Normocephalic, atraumatic. EYES: PERRLA and EOMI. ENT: Nares clear, no rhinorrhea or epistaxis. Mucous membranes moist. Oropharynx without tonsillar hypertrophy exudate or other lesions. Bilateral TMs pearly collins nonbulging NECK: Supple. No adenopathy or masses. No carotid bruits or JVD CHEST: Clear to auscultation. No respiratory distress. No wheezes rales or rhonchi HEART: Regular rate and rhythm. No murmur heard. Normal peripheral pulses. ABDOMEN: Soft, nontender, nondistended, normal active bowel sounds. EXTREMITIES: Normal range of motion. She is able to ambulate with assistance. She has tenderness over the hips bilaterally. No edema. SKIN: Warm, dry, no rash. NEURO: No focal deficits. Alert and oriented x3. PSYCH: Normal mood and affect. Course Course Emergency Course: This is an 84-year-old female who presented for evaluation after slipping to the ground. X-ray negative for fracture. She is able ambulate here at the facility. Recommended she use her walker. Her can monitor her at home. Follow up with primary provider. Go to the ER for worsening symptoms. Patient and in agreement with plan of care. Level of Care: Express Care Visit Vital Signs Vital signs: Vital Signs Temperature 37.7 C H 12/19/24 17:54 Pulse Rate 102 H 12/19/24 17:54 Respiratory Rate 18 12/19/24 17:54 Blood Pressure 116/41 L 12/19/24 17:54 Pulse Oximetry 97 12/19/24 17:54 Oxygen Delivery Room Air 12/19/24 17:54 Temperature 37.7 C H 12/19/24 17:54 Pulse Rate 102 H 12/19/24 17:54 Respiratory Rate 18 12/19/24 17:54 Blood Pressure 116/41 L 12/19/24 17:54 Pulse Oximetry 97 12/19/24 17:54 Oxygen Delivery Room Air 12/19/24 17:54 Medical Decision Making Vital Signs Vital Signs: Vital Signs Temperature 37.7 C H 12/19/24 17:54 Pulse Rate 102 H 12/19/24 17:54 Respiratory Rate 18 12/19/24 17:54 Blood Pressure 116/41 L 12/19/24 17:54 Pulse Oximetry 97 12/19/24 17:54 Oxygen Delivery Room Air 12/19/24 17:54 Temperature 37.7 C H 12/19/24 17:54 Pulse Rate 102 H 12/19/24 17:54 Respiratory Rate 18 12/19/24 17:54 Blood Pressure 116/41 L 12/19/24 17:54 Pulse Oximetry 97 12/19/24 17:54 Oxygen Delivery Room Air 12/19/24 17:54 Imaging Data Radiologist's impression: XR hip BI 2V w AP pelvis 12/19/2024 18:58 Indication: Hip pain after sliding out of bed Procedure: AP pelvis and 2 views each hip Comparison: No prior studies for comparison. Findings: No acute fracture. Pelvic rings intact. There are pelvic phleboliths. There is lower lumbar spondylosis. Osteopenia. Small sclerotic lesion right ilium, likely bone island. Impression: 1: No acute fracture. Discharge Plan Discharge Clinical Impression: Contusion of buttock Patient Disposition: Home Condition: Stable Instructions: Antibiotic Form, Contusion in Adults (ED) Patient Language: Bhutanese Prescriptions: No Action potassium chloride 10 mEq tablet extended release PO furosemide 20 mg tablet atorvastatin 40 mg tablet 40 mg PO DAILY lisinopril-hydrochlorothiazide 20-12.5 mg tablet 2 tablet PO DAILY Follow-up/Referrals: Parag,Yrn Vences MD [Primary Care Provider, Unknown] Time of Disposition: 19:37
== END 2024-12-19 19:40 | disposition home or self-care (01) ==
PROVIDERS: Emergency Provider Nurse Practitioner; PCP Internal Medicine
DX: S30.0XXA Contusion of lower back and pelvis, initial encounter (principal); W06.XXXA Fall from bed, initial encounter; I10 Essential (primary) hypertension; E78.00 Pure hypercholesterolemia, unspecified
CPT/HCPCS: 73521; 99213; G0463